=== PATIENT | male | born 1985 | race African-American/Black ===

== ENCOUNTER 2017-02-26 09:12 | Emergency (ER) | payer SELFPAY ==
[~2017-02-26] VITALS: Ht 167.6 cm; Wt 99.0 kg
[~2017-02-26 09:12] MED LIST: PERC10TA27 PO; VIST25CA PO
[2017-02-26 09:14] VITALS: BP 159/96; PULSE 105; RESP 17; TEMP 97.9; O2SAT 98
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
[2017-02-26] MEDS ORDERED: PROPARACAINE HCL 0.5% OPHT SOLN 15 ML BTL LEFT EYE ONE (09:45)
[2017-02-26] MEDS ORDERED: IBUP800T23 PO (09:55)
[2017-02-26] MEDS ORDERED: ERYTOIN10 LEFT EYE (09:55)
== END 2017-02-26 10:14 | disposition home or self-care (01) ==
LOC: NEPK 09:12
DX: S05.02XA Injury of conjunctiva and corneal abrasion without foreign body, left eye, initial encounter (principal); Z87.448 Personal history of other diseases of urinary system; Z87.39 Personal history of other diseases of the musculoskeletal system and connective tissue; Z87.438 Personal history of other diseases of male genital organs; X58.XXXA Exposure to other specified factors, initial encounter
CPT/HCPCS: 99283

== ENCOUNTER 2017-11-04 03:00 | Emergency (ER) | payer SELFPAY ==
[~2017-11-04] VITALS: Ht 182.9 cm; Wt 80.0 kg
[~2017-11-04 03:00] MED LIST changes: +ERYTOIN10 LEFT EYE; +IBUP1TAB7 PO
[2017-11-04 03:01] VITALS: BP 140/90; PULSE 80; RESP 16; TEMP 99.1; O2SAT 95
[2017-11-04] MEDS ORDERED: diphenhydrAMINE HCL 50 MG CAP PO ONE (04:30)
[2017-11-04 05:03] LABS: AUTOMATED NEUTROPHIL # 4.8 TH/MM3 (1.8-7.7); BASOPHIL % 0.6 % (0.0-2.0); EOSINOPHIL # 0.1 TH/MM3 (0-0.4); HEMATOCRIT 38.1 % (39.0-51.0); HEMOGLOBIN 13.4 GM/DL (13.0-17.0); LYMPH % 29.4 % (9.0-44.0); LYMPHOCYTE # 2.2 TH/MM3 (1.0-4.8); MEAN CELL VOLUME 89.3 FL (80.0-100.0); MEAN CORPUSCULAR HEMOGLOBIN 31.4 PG (27.0-34.0); MEAN CORPUSCULAR HGB CONC 35.2 % (32.0-36.0); MEAN PLATELET VOLUME 8.7 FL (7.0-11.0); MONO % 5.6 % (0.0-8.0); MONOCYTE # 0.4 TH/MM3 (0-0.9); NEUT % 63.4 % (16.0-70.0); PLATELET COUNT 266 TH/MM3 (150-450); RED BLOOD COUNT 4.27 MIL/MM3 (4.50-5.90); RED CELL DISTRIBUTION WIDTH 12.4 % (11.6-17.2); WHITE BLOOD COUNT 7.6 TH/MM3 (4.0-11.0)
[2017-11-04 05:08] LABS: ALT (GPT) 39 U/L (12-78)
[2017-11-04 05:10] LABS: ALKALINE PHOSPHATASE 72 U/L (45-117); TOTAL BILIRUBIN ADULT 0.2 MG/DL (0.2-1.0); TOTAL PROTEIN 7.4 GM/DL (6.4-8.2)
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
[2017-11-04 05:16] LABS: ALBUMIN 3.6 GM/DL (3.4-5.0); AST (GOT) 36 U/L (15-37); BICARBONATE 28.4 MEQ/L (21.0-32.0); BLOOD UREA NITROGEN 18 MG/DL (7-18); CALCIUM 8.7 MG/DL (8.5-10.1); CHLORIDE 103 MEQ/L (98-107); CREATININE 1.14 MG/DL (0.60-1.30); GLOMERULAR FILTRATION RATE 91 ML/MIN (>89); GLUCOSE,RANDOM 106 MG/DL (74-106); SODIUM (NA) 138 MEQ/L (136-145)
[2017-11-04 05:20] LABS: ACETAMINOPHEN LESS THAN 2.0 MCG/ML (10.0-30.0)
[2017-11-04 10:00] VITALS: BP 120/71; PULSE 73; RESP 19; O2SAT 98
[2017-11-04] MEDS ORDERED: LORazepam 2 MG/ML VIAL IM ONE (11:00)
[2017-11-04] MEDS ORDERED: HALOPERIDOL LACTATE 5 MG/ML AMP IM ONE (11:00)
--- NOTE | 2017-11-04 11:06 | PD ---
Physical Exam Date Seen by Provider: Nov 04, 2017 Time Seen by Provider: 10:30 Narrative This person was seen last night for depression and suicidal ideation. He was cooperative last night and was allowed to be a voluntary psychiatric patient. However, this patient's behavior has now escalated. Apparently, his cell phone has . He was using the phone at the nurse's station. He began yelling and cursing loudly. He was voicing suicidal ideation. His plan is to overdose on street drugs. Data Data Last Documented VS Vital Signs Date Time Temp Pulse Resp B/P (MAP) Pulse Ox O2 Delivery O2 Flow Rate FiO2 11/04/17 03:01 99.1 80 16 140/90 (107) 95 Room Air Orders Orders Complete Blood Count With Diff (11/04/17 04:20) Comprehensive Metabolic Panel (11/04/17 04:20) Psych Screen (11/04/17 04:20) Drug Screen, Random Urine (11/04/17 04:20) Alcohol (Ethanol) (11/04/17 04:20) Salicylates (Aspirin) (11/04/17 04:20) Tylenol (Acetaminophen) (11/04/17 04:20) Diphenhydramine (Benadryl) (11/04/17 04:30) Diet Regular Basic (11/04/17 Breakfast) Lorazepam Inj (Ativan Inj) (11/04/17 11:00) Haloperidol Inj (Haldol Inj) (11/04/17 11:00) Restraints Non-Violent BELLA.Q3H (11/04/17 10:53) Labs Laboratory Tests Test 11/04/17 04:45 White Blood Count 7.6 TH/MM3 Red Blood Count 4.27 MIL/MM3 Hemoglobin 13.4 GM/DL Hematocrit 38.1 % Mean Corpuscular Volume 89.3 FL Mean Corpuscular Hemoglobin 31.4 PG Mean Corpuscular Hemoglobin Concent 35.2 % Red Cell Distribution Width 12.4 % Platelet Count 266 TH/MM3 Mean Platelet Volume 8.7 FL Neutrophils (%) (Auto) 63.4 % Lymphocytes (%) (Auto) 29.4 % Monocytes (%) (Auto) 5.6 % Eosinophils (%) (Auto) 1.0 % Basophils (%) (Auto) 0.6 % Neutrophils # (Auto) 4.8 TH/MM3 Lymphocytes # (Auto) 2.2 TH/MM3 Monocytes # (Auto) 0.4 TH/MM3 Eosinophils # (Auto) 0.1 TH/MM3 Basophils # (Auto) 0.0 TH/MM3 CBC Comment DIFF FINAL Differential Comment Blood Urea Nitrogen 18 MG/DL Creatinine 1.14 MG/DL Random Glucose 106 MG/DL Total Protein 7.4 GM/DL Albumin 3.6 GM/DL Calcium Level 8.7 MG/DL Alkaline Phosphatase 72 U/L Aspartate Amino Transf (AST/SGOT) 36 U/L Alanine Aminotransferase (ALT/SGPT) 39 U/L Total Bilirubin 0.2 MG/DL Sodium Level 138 MEQ/L Potassium Level 4.3 MEQ/L Chloride Level 103 MEQ/L Carbon Dioxide Level 28.4 MEQ/L Anion Gap 7 MEQ/L Estimat Glomerular Filtration Rate 91 ML/MIN Salicylates Level LESS THAN 1.7 MG/DL Urine Opiates Screen POS Acetaminophen Level LESS THAN 2.0 MCG/ML Urine Barbiturates Screen NEG Urine Amphetamines Screen NEG Urine Benzodiazepines Screen POS Urine Cocaine Screen POS Urine Cannabinoids Screen POS Ethyl Alcohol Level LESS THAN 3 MG/DL MDM Supervised Visit with KODY: No Narrative Course This patient has now been made a Subramanian Act. I have given orders for chemical and physical restraints as needed. The nurse has been able to de-escalate him currently. However, this patient is certainly at risk for flight and destructive behavior. Diagnosis Primary Impression: Medical clearance for psychiatric admission Additional Impression: Substance abuse Condition: Stable Catherine Orozco MD Nov 04, 2017 11:06
[2017-11-04 18:00] VITALS: BP 111/82; PULSE 82; RESP 20; O2SAT 98
== END 2017-11-05 01:32 ==
LOC: NEPD 03:00 → NEPJ 11-05 01:32
DX: F19.10 Other psychoactive substance abuse, uncomplicated (principal); F11.10 Opioid abuse, uncomplicated; F14.10 Cocaine abuse, uncomplicated; F12.10 Cannabis abuse, uncomplicated; F13.10 Sedative, hypnotic or anxiolytic abuse, uncomplicated; G89.29 Other chronic pain
CPT/HCPCS: 80053; 80307; 85025; 96372; 99284; J1630; J2060